=== PATIENT | male | born 1990 | race Caucasian/White ===

== ENCOUNTER 2020-11-27 18:55 | Emergency (ER) | payer MEDICAID ==
[~2020-11-27] VITALS: Ht 172.7 cm; Wt 54.5 kg
[2020-11-27 20:09] LABS: BASOPHILS % (AUTO) 0.5 % (0-1); EOSINOPHILS % (AUTO) 0.3 % (0-6); HEMATOCRIT 43.7 % (42.0-52.0); HEMOGLOBIN 14.7 g/dl (14.0-17.9); LYMPHOCYTES # (AUTO) 0.8 X10'3 (1.1-4.8); MEAN CORPUSCULAR HEMOGLOBIN 31.2 PG (27.0-31.0); MEAN CORPUSCULAR HGB CONC 33.7 g/dL (33.0-36.5); MEAN CORPUSCULAR VOLUME 92.7 FL (78-98); MEAN PLATELET VOLUME 8.6 FL (7.4-10.4); MONOCYTES # (AUTO) 0.4 X10'3 (0-0.9); MONOCYTES % (AUTO) 7.6 % (2-12); NEUTROPHILS % (AUTO) 75.6 % (42-75); PLATELET COUNT 201 X10'3 (140-440); RED BLOOD COUNT 4.72 X10'6 (4.70-6.10); RED CELL DISTRIBUTION WIDTH 12.8 % (11.5-14.5); WHITE BLOOD COUNT 5.3 X10'3 (4.5-11.0)
[2020-11-27 20:16] LABS: CLARITY,URINE CLEAR (Clear); COLOR,URINE AMBER (Yellow); GLUCOSE, URINE NEGATIVE (Neg); KETONES,URINE NEGATIVE (Neg); LEUKOCYTE ESTERASE ,URINE NEGATIVE (Neg); NITRITES, URINE NEGATIVE (Neg); OCCULT BLOOD,URINE SMALL (Neg); PROTEIN,URINE NEGATIVE (Neg); UROBILINOGEN,URINE 0.2 E.U/dL (0.2-1.0)
[2020-11-27 20:18] LABS: UA COLLECTION TYPE VOIDED
[2020-11-27 20:20] VITALS: BP 109/69
[2020-11-27 20:22] LABS: ALANINE AMINOTRANSFERASE 24 U/L (12-78); ALBUMIN 4.2 G/DL (3.4-5.0); ALBUMIN/GLOBULIN RATIO 1.3 (1.1-1.5); ALKALINE PHOSPHATASE 96 IU/L (46-116); AMYLASE 45 U/L (25-115); ANION GAP 12 (8-16); ASPARTATE AMINO TRANSFERASE 14 U/L (10-37); BILIRUBIN,TOTAL 0.4 MG/DL (0.1-1.0); BLOOD UREA NITROGEN 15 MG/DL (7-18); BUN/CREATININE RATIO 17.9 (5.4-32.0); CALCIUM 8.5 MG/DL (8.5-10.1); CHLORIDE 105 MMOL/L (99-107); CREATININE 0.84 MG/DL (0.60-1.10); GLUCOSE 92 MG/DL (70-104); LIPASE 85 U/L (73-393); POTASSIUM 3.5 MMOL/L (3.5-5.1); SODIUM 145 MMOL/L (135-145); TOTAL CARBON DIOXIDE 28.5 MMOL/L (24-32); TOTAL PROTEIN 7.5 G/DL (6.4-8.2); eGFR > 90 ML/MIN
[2020-11-27 20:24] LABS: MUCUS STRANDS MANY /LPF (Neg); SQUAMOUS EPITHELIAL CELL,UR FEW /LPF (FEW); WBC,URINE 0-4 /HPF (0-4)
[2020-11-27 20:25] LABS: BACTERIA,URINE FEW /HPF (Neg)
[2020-11-27] MEDS ORDERED: PANT-47 PO (21:10)
[2020-11-27] MEDS ORDERED: pantoprazole 40mg Tablet.DR PO SCH (21:15)
== END 2020-11-27 21:28 | disposition home or self-care (01) ==
LOC: ER 18:55
DX: R10.84 Generalized abdominal pain (principal); K29.00 Acute gastritis without bleeding; R14.0 Abdominal distension (gaseous); R19.5 Other fecal abnormalities; F17.200 Nicotine dependence, unspecified, uncomplicated; F19.90 Other psychoactive substance use, unspecified, uncomplicated; Z79.899 Other long term (current) drug therapy
CPT/HCPCS: 36415; 80053; 81001; 82150; 83690; 85025; 99283

== ENCOUNTER 2021-06-19 14:27 | Emergency (ER) | payer MEDICAID ==
[~2021-06-19] VITALS: Ht 172.7 cm; Wt 5.9 kg
[~2021-06-19 14:27] MED LIST: PANT-47 PO
[2021-06-19] MEDS ORDERED: propofol 1000mg/100ml bottle 100 ML IV PRN ×2 (15:40→15:49)
[2021-06-19] MEDS ORDERED: propofol 10mg/ml 20ml vial IV ONE (15:50)
[2021-06-19] MEDS ORDERED: HYDR-3965 PO (17:19)
[2021-06-19] MEDS ORDERED: IBUP-1984 PO (17:19)
[2021-06-19 17:30] VITALS: BP 105/73
== END 2021-06-19 18:03 | disposition home or self-care (01) ==
LOC: ER 14:27
DX: S52.511A Displaced fracture of right radial styloid process, initial encounter for closed fracture (principal); M25.531 Pain in right wrist; Z72.89 Other problems related to lifestyle; Z79.899 Other long term (current) drug therapy; W19.XXXA Unspecified fall, initial encounter; Y93.89 Activity, other specified; Y92.89 Other specified places as the place of occurrence of the external cause; Y99.8 Other external cause status
CPT/HCPCS: 25605; 73090; 73100; 94760; 94799; 99152; 99285